=== PATIENT | male | born 1960 | race African-American/Black ===

== ENCOUNTER 2020-01-20 08:28 | Outpatient (CLI) | payer OTHER ==
[2020-01-20] VITALS (16 sets, daily range): BP systolic 116–152; BP diastolic 74–120; PULSE 59–74
[~2020-01-20] VITALS: Ht 172.7 cm; Wt 113.6 kg
[~2020-01-20 08:28] MED LIST: ASPIRIN E.C. 8181 MG PO; BETAPACE 80MG80 MG PO; ELIQUIS 2.5 PO; EPA FISH OIL1 SGL PO; HCTZ 25MG TAB25 MG PO; IMDUR 30MG30 MG/TAB PO; MELATIN 3 MG-11 TAB PO; MINIPRESS 1M1 MG/CAP PO; MONOKET10 MG; MUCINEX 60600 MG/TA1; MUCINEX 60600 MG/TA1 PO; NEXIUM 40MG40 MG PO; NITROSTAT0.4 MG/TAB SL; PROTONIX 40MG T40 MG PO; ZYRTEC 10MG10 MG PO; [UNRECOGNIZED DRUG - CODE]
[2020-01-20] MEDS ORDERED: K-DUR 10 MEQ T10 MEQ PO (08:50)
[2020-01-20] MEDS ORDERED: NATURAL IRON65 MG (08:50)
--- NOTE | 2020-01-20 10:00 | NUR ---
PT BP ELEVATED DUE TO MOVEMENT.
--- NOTE | 2020-01-20 13:10 | NUR ---
Pt assisted out to family's car by wheelchair with personal belongings. IV was DC'd with catheter intact, and bleeding controlled at site. Bandaid over bx site remains clean, dry and intact, and pt continues to deny complaints. DC instructions were reviewed and pt expressed understanding.
== END 2020-01-20 13:10 | disposition home or self-care (01) ==
LOC: COL.RAD 08:28
DX: C64.9 Malignant neoplasm of unspecified kidney, except renal pelvis (principal); R91.1 Solitary pulmonary nodule
CPT/HCPCS: J2250; J3010

== ENCOUNTER → 2020-01-31 | Outpatient (CLI) | payer OTHER ==
[~2020-01-31] MED LIST changes: +K-DUR 10 MEQ T10 MEQ PO; +NATURAL IRON65 MG
== END ==
LOC: COL.RAD 09:15
DX: Z85.528 Personal history of other malignant neoplasm of kidney (principal)
CPT/HCPCS: A9503

== ENCOUNTER → 2020-05-22 | Outpatient (CLI) | payer OTHER ==
[2020-05-22 09:39] VITALS: BP 161/89; PULSE 66
--- NOTE | 2020-05-22 11:00 | NUR ---
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 Told pt he will call the DR and discuss findings, biopsy was cancelled. IV d'cd intact. pt dressed, instructed to call Dr office if has not been called by tomorrow afternoon for followup
== END ==
LOC: COL.RAD 09:06
DX: J98.4 Other disorders of lung (principal); J18.1 Lobar pneumonia, unspecified organism

== ENCOUNTER 2021-11-09 07:15 | Day surgery (SDC) | payer OTHER ==
[~2021-11-09] VITALS: Ht 172.7 cm; Wt 88.3 kg
[2021-11-09] MEDS ORDERED: CABOMETYX40 MG PO (08:02)
[2021-11-09 09:40] VITALS: BP 107/78; PULSE 74; TEMP 97
--- NOTE | 2021-11-09 09:40 | NUR ---
PT TO [facility]AY 4 VIA CART FROM ENDO ROOM, IN ROOM, CALL LIGHT IN REACH, TAKES SNACK, NO C/O
[2021-11-09 09:55] VITALS: BP 117/84; PULSE 68
[2021-11-09 10:10] VITALS: BP 122/89; PULSE 70
--- NOTE | 2021-11-09 10:15 | NUR ---
IV D'CD IN RIGHT HAND INTACT, REVIEEWD DISCHARGE INST. ON PROCEDURES, MODERATE SEDATION AND FOLLOWUP WITH OFFICE WITH VERBAL UNDERSTANDING. PT UP AND DRESSED, DISCHARGED VIA W/C TO CAR WITH AT 1020
[2021-11-09 14:50] VITALS: BP 132/96; PULSE 72; TEMP 96.6
== END 2021-11-09 10:20 | disposition home or self-care (01) ==
LOC: SDCO 07:15
DX: K52.832 Lymphocytic colitis (principal); K21.00 Gastro-esophageal reflux disease with esophagitis, without bleeding; Z87.891 Personal history of nicotine dependence
CPT/HCPCS: J2704; J7120

== ENCOUNTER → 2022-12-24 | Outpatient (CLI) | payer OTHER ==
[~2022-12-24] MED LIST changes: +CABOMETYX40 MG PO
== END ==
LOC: COL.CARD 12:55
DX: C64.9 Malignant neoplasm of unspecified kidney, except renal pelvis (principal)